=== PATIENT | male | born 1950 | race Caucasian/White ===

== ENCOUNTER 2018-01-14 17:59 | Emergency (ER) | payer SELFPAY ==
[~2018-01-14] VITALS: Ht 177.8 cm; Wt 73.5 kg
[2018-01-14 18:55] LABS: MICROSCOPIC NOT IND
[2018-01-14 19:05] LABS: CULTURE INDICATED? NO
[2018-01-14 19:09] LABS: BASOPHILS # (AUTO) 0.03 x10^3/uL (0-0.1); BASOPHILS % (AUTO) 0 % (0-1); EOSINOPHILS # (AUTO) 0.32 x10^3/uL (0-0.4); EOSINOPHILS % (AUTO) 4 % (1-7); LYMPHOCYTES # (AUTO) 2.17 x10^3/uL (1-3.4); LYMPHOCYTES % (AUTO) 24 % (22-44); MD NO; MEAN CORPUSCULAR HEMOGLOBIN 30.5 pg (27.5-34.5); MEAN CORPUSCULAR HGB CONC 33.8 g/dL (33.2-36.2); MEAN CORPUSCULAR VOLUME 90.4 fL (81-97); MEAN PLATELET VOLUME 8.1 fL (7.4-10.4); MONOCYTES # (AUTO) 0.64 x10^3/uL (0.2-0.8); MONOCYTES % (AUTO) 7 % (2-9); NEUTROPHILS # (AUTO) 5.97 x10^3/uL (1.8-6.8); NEUTROPHILS % (AUTO) 65 % (42-75); PLATELET COUNT 223 x10^3/uL (130-400); RED BLOOD COUNT 4.64 x10^6/uL (4.38-5.82)
[2018-01-14 19:20] LABS: ALBUMIN 4.1 g/dL (3.4-5.0); ANION GAP 7 mmol/L (5-15); CALCIUM 8.5 mg/dL (8.5-10.1); CHLORIDE 107 mmol/L (98-107)
[2018-01-14 19:21] LABS: CREATININE 0.95 mg/dL (0.7-1.3)
[2018-01-14 20:31] VITALS: BP 108/68
== END 2018-01-14 20:35 | disposition home or self-care (01) ==
LOC: ED 20:30
DX: K40.90 Unilateral inguinal hernia, without obstruction or gangrene, not specified as recurrent (principal)
CPT/HCPCS: 36415; 76857; 80048; 81003; 82040; 85025; 99285

== ENCOUNTER → 2018-03-20 | Outpatient (CLI) | payer SELFPAY ==
[~2018-03-20] MED LIST: NONE PER PT
== END | disposition home or self-care (01) ==
LOC: STAR 10:54
PROVIDERS: ATTEND Colon & Rectal Surgery
DX: Z01.818 Encounter for other preprocedural examination (principal)
CPT/HCPCS: 93005

== ENCOUNTER 2018-03-27 06:31 | Day surgery (SDC) | payer SELFPAY ==
[~2018-03-27] VITALS: Ht 176.5 cm; Wt 73.3 kg
[2018-03-27] MEDS ORDERED: LACTATED RINGERS 1,000 ML IV SCH (06:45)
[2018-03-27 06:51] VITALS: BP 129/73
[2018-03-27] MEDS ORDERED: EPINEPHRINE 1 MG/ML, 1ML ONE (07:03)
[2018-03-27] MEDS ORDERED: BUPIVACAINE/PF 0.5% ONE (07:03)
[2018-03-27] MEDS ORDERED: FENTANYL PF 250 MCG/5ML ONE (07:07)
[2018-03-27] MEDS ORDERED: DEXAMETHASONE 4 MG/ML, 1ML ONE (07:10)
[2018-03-27] MEDS ORDERED: ONDANSETRON 2MG/ML, 2ML ONE (07:10)
[2018-03-27] MEDS ORDERED: MIDAZOLAM 1 MG/ML, 2ML ONE (07:21)
[2018-03-27] MEDS ORDERED: ROCURONIUM 10 MG/ML,10ML ONE (07:26)
[2018-03-27] MEDS ORDERED: FENTANYL PF 100 MCG/2ML IV PRN (08:00)
[2018-03-27] MEDS ORDERED: MIDAZOLAM 1 MG/ML, 2ML IV PRN (08:00)
[2018-03-27] MEDS ORDERED: PROMETHAZINE 25 MG/ML, 1ML IV PRN (08:00)
[2018-03-27] MEDS ORDERED: LABETALOL 5MG/ML, 20ML IV PRN (08:00)
[2018-03-27] MEDS ORDERED: EPHEDRINE 50 MG/ML, 1ML IVPush PRN (08:00)
[2018-03-27] MEDS ORDERED: OXYcodone 5 MG/5 ML ORAL.SOL UDC PO PRN (08:00)
[2018-03-27] MEDS ORDERED: DIPHENHYDRAMINE 50 MG/ML, 1ML IVPush PRN (08:00)
[2018-03-27] MEDS ORDERED: ONDANSETRON ODT 8 MG PO PRN (08:00)
[2018-03-27] MEDS ORDERED: EPHEDRINE 50 MG/ML, 1ML IM PRN (08:00)
[2018-03-27] MEDS ORDERED: PROMETHAZINE 25 MG SUPP PR PRN (08:00)
[2018-03-27] MEDS ORDERED: ACETAMINOPHEN 325 MG TABLET PO PRN (08:00)
[2018-03-27] MEDS ORDERED: MORPHINE SULFATE 4 MG/ML, 1ML IVPush PRN (08:00)
[2018-03-27] MEDS ORDERED: PROMETHAZINE 12.5 MG SUPP PR PRN (08:00)
[2018-03-27] MEDS ORDERED: THROMBIN 5,000 UNIT VIAL TP ONE (08:28)
[2018-03-27] MEDS ORDERED: PROPOFOL 10 MG/ML, 20ML ONE (08:58)
[2018-03-27] MEDS ORDERED: SUCCINYLCHOLINE 20 MG/ML, 10ML ONE (08:58)
[2018-03-27] MEDS ORDERED: MEPERIDINE/PF 25MG/0.5ML ONE ×2 (09:18→09:49)
[2018-03-27] MEDS ORDERED: OXYcodone 5 MG/5 ML ORAL.SOL UDC ONE (09:19)
[2018-03-27] MEDS: MEPERIDINE/PF 25MG/0.5ML IVPush PRN ×2 (09:21→09:42)
[2018-03-27] MEDS ORDERED: KETOROLAC 30 MG/1 ML ONE (09:23)
[2018-03-27] MEDS ORDERED: KETOROLAC 30 MG/1 ML IVPush ONE (09:30)
== END 2018-03-27 14:15 | disposition home or self-care (01) ==
LOC: OUT 06:31
PROVIDERS: ATTEND Colon & Rectal Surgery
DX: K40.90 Unilateral inguinal hernia, without obstruction or gangrene, not specified as recurrent (principal); Z86.14 Personal history of Methicillin resistant Staphylococcus aureus infection
CPT/HCPCS: 49650; C1727; C1781; J0171; J0330; J1100; J1885; J2175; J2250; J2405; J2704; J3010; J3490; J7120

== ENCOUNTER 2021-02-06 09:30 | Emergency (ER) | payer MEDICARE, MEDICAID ==
[~2021-02-06] VITALS: Ht 176.5 cm; Wt 62.6 kg
--- NOTE | 2021-02-06 09:51 | NUR ---
PT AMBULATORY TO ROOM FROM TRIAGE, PT CHANGED INTO GOWN. MONITORS IN PLACE. PT C/O N/V WITH VOMITING BEING WHITE AND STRINGY
[2021-02-06] MEDS ORDERED: ONDANSETRON 2MG/ML, 2ML ONE (10:15)
--- NOTE | 2021-02-06 10:17 | NUR ---
Recieved report from [facility]. Lab at bedside.
--- NOTE | 2021-02-06 10:27 | NUR ---
pt medicated per eMAR. per pt he has multiple concerns that his N/V is becuase of his liver d/t his friend having liver cancer.
[2021-02-06] MEDS ORDERED: SODIUM CHLORIDE 0.9% 1,000ML IVBOLUS ONE (10:30)
[2021-02-06] MEDS ORDERED: ONDANSETRON 2MG/ML, 2ML IVPush ONE (10:30)
[2021-02-06 10:31] LABS: MEAN CORPUSCULAR HEMOGLOBIN 31.4 pg (27.5-34.5); MEAN CORPUSCULAR HGB CONC 34.5 g/dL (33.2-36.2); MEAN PLATELET VOLUME 8.2 fL (7.4-10.4); PLATELET COUNT 193 x10^3/uL (130-400); RED BLOOD COUNT 4.36 x10^6/uL (4.38-5.82); RED CELL DISTRIBUTION WIDTH 14.5 % (9.4-14.8)
[2021-02-06 10:36] LABS: ALBUMIN 3.8 g/dL (3.4-5.0); ANION GAP 10 mmol/L (5-15); CALCIUM 8.8 mg/dL (8.5-10.1); CHLORIDE 105 mmol/L (98-107)
[2021-02-06 10:40] LABS: ALANINE AMINOTRANSFERASE 23 U/L (12-78); ALKALINE PHOSPHATASE 61 U/L (45-117); BILIRUBIN,TOTAL 0.7 mg/dL (0.2-1.0); CREATININE 0.72 mg/dL (0.7-1.3); TOTAL PROTEIN 6.7 g/dL (6.4-8.2)
[2021-02-06 10:54] LABS: <PLATELET ESTIMATE> ADEQUATE; <PLT MORPHOLOGY> NORMAL PLT MORPH; <RBC MORPHOLOGY> NORMAL; LYMPH#(MANUAL) 0.99 x10^3/uL (1-3.4); LYMPHS% (MANUAL) 10 % (22-44); MONOS#(MANUAL) 0.69 x10^3/uL (0.3-2.7); MONOS% (MANUAL) 7 % (2-9); SEG#(MANUAL) 8.22 x10^3/uL (1.8-6.8); SEGS% (MANUAL) 83 % (42-75)
--- NOTE | 2021-02-06 11:16 | NUR ---
UA obtained and sent to lab. pt appears to be resting comfortably in the bed at this time. IV fluids infusing without complications.
[2021-02-06 11:29] LABS: MICROSCOPIC INDICATED
[2021-02-06 12:47] VITALS: BP 105/59
--- NOTE | 2021-02-06 12:49 | NUR ---
Patient given discharge instructions and they have confirmed that they understand the instructions. Patient ambulatory with steady gait. NAD, all questions answered appropriately, denies additional needs at this time. No personal belongings left in room after discharge.
== END 2021-02-06 12:49 | disposition home or self-care (01) ==
LOC: ED 10:36
DX: K29.00 Acute gastritis without bleeding (principal); R11.0 Nausea; R10.84 Generalized abdominal pain
CPT/HCPCS: 36415; 80053; 81001; 83690; 85025; 96361; 96374; 99283; J2405; J7030